=== PATIENT | female | born 1940 | race Caucasian/White ===

== ENCOUNTER → 2016-10-05 | Outpatient (CLI) | payer MEDICARE, BC ==
--- NOTE | 2016-10-05 14:36 | PCVCIMAG ---
APPROVED REPORT Study performed: 10/05/2016 13:38:24 EXAM: Comprehensive 2D, Doppler, and color-flow Echocardiogram Patient Location: Echo lab Status: routine Risk Factors: Cardiac Risk Factors: HTN, Hyperlipidemia, DM Indications Diabetes CAD Hypertension/HDD HLP 2D Dimensions LVEF(%): 71.37 (>50%) IVSd: 8.25 (7-11mm)LVOT Diam: 19.87 (18-24mm) LVDd: 46.32 mm PWd: 9.19 (7-11mm)Ascending Ao: 29.68 (22-36mm) LVDs: 27.52 (25-40mm) Left Atrium: 33.26 (27-40mm) Aortic Root: 24.11 mm LV Single Plane 4CH: 66.53 % LV Single Plane 2CH: 71.56 %Garcia's LVEF: 69.04 % Biplane EF: 68.9 % Volumes Left Atrial Volume (Systole) Single Plane 4CH: 59.07 mLSingle Plane 2CH: 76.53 mL LA ESV Index: 37.00 mL/m2 Aortic Valve AoV Peak Elías.: 2.08 m/s AO Peak Gr.: 17.70 mmHgLVOT Max P.33 mmHg AO Mean Gr.: 9.39 mmHgLVOT Mean P.34 mmHg AO V2 Mean: 1.46 m/sLVOT Max V: 1.03 m/s AO V2 VTI: 38.99 cmLVOT Mean V: 0.72 m/s BRENTON (VTI): 1.86 [id number] VTI: 23.38 cm BRENTON Vmax: 1.54 cm2 SV (LVOT): 72.47 mL Mitral Valve E/A Ratio: 0.7 MV Decel. Time: 285.48 ms MV E Max Elías.: 0.74 m/s MV A Elías.: 1.06 m/s IVRT: 117.65 ms TDI E/Lateral E': 10.57E/Medial E': 10.57 Medial E' Elías.: 0.07 m/s Lateral E' Elías.: 0.07 m/s Pulmonary Valve PV Peak Elías.: 1.32 m/sPV Peak Gr.: 6.95 mmHg Tricuspid Valve TR Peak Elías.: 1.45 m/s TR Peak Gr.: 8.38 mmHg TV Vmax: 0.44 m/s Left Ventricle The left ventricle is normal size. There is normal LV segmental wall motion. There is normal left ventricular wall thickness. Left ventricular systolic function is normal. The left ventricular ejection fraction is within the normal range. LVEF is 65-70%. Grade I - abnormal relaxation pattern. Right Ventricle The right ventricle is normal size. The right ventricular systolic function is normal. Atria Left atrium is mildly dilated. The right atrium size is normal. Aortic Valve Aortic valve leaflets are sclerotic. No aortic regurgitation is present. No hemodynamically significant valvular aortic stenosis. Mitral Valve The mitral valve is normal in structure. There is no mitral valve regurgitation noted. No evidence of mitral valve stenosis. Tricuspid Valve The tricuspid valve is normal in structure. There is no tricuspid valve regurgitation noted. Pulmonic Valve The pulmonary valve is normal in structure. There is no pulmonic valvular regurgitation. Great Vessels The aortic root is normal in size. The ascending aorta is normal in size. IVC is normal in size and collapses with >50% inspiration The pulmonary artery is normal. Pericardium There is no pericardial effusion. There is no pleural effusion. <Conclusion> The left ventricle is normal size. Left ventricular systolic function is normal. The right ventricle is normal size. Left atrium is mildly dilated. The right atrium size is normal. Aortic valve leaflets are sclerotic. The mitral valve is normal in structure. There is no pericardial effusion.
== END | disposition home or self-care (01) ==
LOC: PCVCIMAG 12:57
PROVIDERS: ATTEND Internal Medicine Cardiovascular Disease
DX: I25.10 Atherosclerotic heart disease of native coronary artery without angina pectoris (principal); I10 Essential (primary) hypertension; E78.00 Pure hypercholesterolemia, unspecified; K21.9 Gastro-esophageal reflux disease without esophagitis; K29.70 Gastritis, unspecified, without bleeding; E11.9 Type 2 diabetes mellitus without complications; Z95.5 Presence of coronary angioplasty implant and graft; Z88.8 Allergy status to other drugs, medicaments and biological substances; Z88.6 Allergy status to analgesic agent; Z91.018 Allergy to other foods; Z79.4 Long term (current) use of insulin; Z79.899 Other long term (current) drug therapy; Z86.73 Personal history of transient ischemic attack (TIA), and cerebral infarction without residual deficits; Z90.49 Acquired absence of other specified parts of digestive tract; Z87.891 Personal history of nicotine dependence
CPT/HCPCS: 93005; 93306; G0463

== ENCOUNTER → 2017-03-19 | Outpatient (CLI) | payer MEDICARE, BC | END | disposition home or self-care (01) | LOC: PCVCCLINIC 10:49 | PROVIDERS: ATTEND Internal Medicine Cardiovascular Disease | DX: I25.10 Atherosclerotic heart disease of native coronary artery without angina pectoris (principal); I10 Essential (primary) hypertension; E78.00 Pure hypercholesterolemia, unspecified; K21.9 Gastro-esophageal reflux disease without esophagitis; Z79.899 Other long term (current) drug therapy; Z87.891 Personal history of nicotine dependence | CPT/HCPCS: 93005; G0463 ==

== ENCOUNTER → 2017-09-17 | Outpatient (CLI) | payer MEDICARE, BC ==
[~2017-09-17] MED LIST: AMINOPHYLLINE 250 MG/10 ML VIAL.; REGADENOSON 0.4 MG/5 ML DISP.SYRIN. IV
== END | disposition home or self-care (01) ==
LOC: PCVCIMAG 14:28
DX: I25.10 Atherosclerotic heart disease of native coronary artery without angina pectoris (principal); E78.5 Hyperlipidemia, unspecified; I10 Essential (primary) hypertension; E11.9 Type 2 diabetes mellitus without complications; E78.00 Pure hypercholesterolemia, unspecified; K21.9 Gastro-esophageal reflux disease without esophagitis; Z87.891 Personal history of nicotine dependence; Z88.8 Allergy status to other drugs, medicaments and biological substances; Z79.899 Other long term (current) drug therapy; Z79.4 Long term (current) use of insulin
CPT/HCPCS: 78452; 93005; 93017; A9500; G0463; J0280; J2785

== ENCOUNTER → 2018-03-18 | Outpatient (CLI) | payer MEDICARE, BC | END | disposition home or self-care (01) | LOC: PCVCCLINIC 15:10 | PROVIDERS: ATTEND Internal Medicine Cardiovascular Disease | DX: I25.10 Atherosclerotic heart disease of native coronary artery without angina pectoris (principal); I10 Essential (primary) hypertension; E78.00 Pure hypercholesterolemia, unspecified; E11.9 Type 2 diabetes mellitus without complications; E78.5 Hyperlipidemia, unspecified; Z79.4 Long term (current) use of insulin; Z87.891 Personal history of nicotine dependence | CPT/HCPCS: 93005; G0463 ==

== ENCOUNTER → 2018-09-09 | Outpatient (CLI) | payer MEDICARE, BC ==
--- NOTE | 2018-09-09 13:38 | PCVCIMAG ---
APPROVED REPORT Study performed: 09/09/2018 11:51:47 EXAM: Comprehensive 2D, Doppler, and color-flow Echocardiogram Patient Location: Echo lab Status: routine BSA: 1.78 HR: 70 bpmBP: 130/68 mmHg Rhythm: NSR Other Information Study Quality: Adequate Risk Factors: Cardiac Risk Factors: HTN, Hyperlipidemia Indications CAD aortic stenosis 2D Dimensions IVSd: 11.81 (7-11mm)LVOT Diam: 21.90 (18-24mm) LVDd: 39.38 mm PWd: 11.33 (7-11mm)Ascending Ao: 28.05 (22-36mm) LVDs: 26.68 (25-40mm) Left Atrium: 39.63 (27-40mm) Aortic Root: 26.98 mm LV Single Plane 4CH: 63.79 % LV Single Plane 2CH: 55.82 % Biplane EF: 61.4 % Volumes Left Atrial Volume (Systole) Single Plane 4CH: 61.48 mLSingle Plane 2CH: 69.30 mL LA ESV Index: 39.00 mL/m2 Aortic Valve AoV Peak Elías.: 2.94 m/s AO Peak Gr.: 34.47 mmHgLVOT Max P.86 mmHg AO Mean Gr.: 14.86 mmHgLVOT Mean P.31 mmHg AO V2 Mean: 1.80 m/sLVOT Max V: 1.00 m/s AO V2 VTI: 68.81 cmLVOT Mean V: 0.73 m/s BRENTON (VTI): 1.28 [id number] V1 VTI: 23.46 cm BRENTON Vmax: 1.29 cm2 SV (LVOT): 88.34 mL Mitral Valve E/A Ratio: 0.7 MV Decel. Time: 254.63 ms MV E Max Elías.: 0.75 m/s MV A Elías.: 1.07 m/s IVRT: 114.19 ms Pulmonary Valve PV Peak Elías.: 1.09 m/sPV Peak Gr.: 4.75 mmHg Pulmonary Vein P Vein S: 0.29 m/sP Vein A: 0.32 m/s P Vein D: 0.51 m/sP Vein A Dur.: 121.1 msec P Vein S/D Ratio: 0.57 Tricuspid Valve TR Peak Elías.: 2.05 m/s TR Peak Gr.: 16.85 mmHg TV Vmax: 0.44 m/s Left Ventricle The left ventricle is normal size. There is normal LV segmental wall motion. Borderline concentric left ventricular hypertrophy. Left ventricular systolic function is normal. The left ventricular ejection fraction is within the normal range. LVEF is 60-65%. Grade I - abnormal relaxation pattern. Right Ventricle The right ventricle is normal size. The right ventricular systolic function is normal. Atria Left atrium is mildly dilated. The right atrium size is normal. Aortic Valve Mild-Moderate aortic valve sclerosis. No aortic regurgitation is present. There is mild valvular aortic stenosis. Maximum pressure gradient of 34 mmHg and mean pressure gradient of 15 mmHg. Mitral Valve The mitral valve is normal in structure. Mild mitral regurgitation. No evidence of mitral valve stenosis. Tricuspid Valve The tricuspid valve is normal in structure. Trace tricuspid regurgitation with PAP of 24 mmHg. Pulmonic Valve The pulmonary valve is normal in structure. There is no pulmonic valvular regurgitation. Great Vessels The aortic root is normal in size. IVC is normal in size and collapses >50% with inspiration. Pericardium There is no pericardial effusion. There is no pleural effusion. <Conclusion> The left ventricle is normal size. Borderline concentric left ventricular hypertrophy. Left ventricular systolic function is normal. Grade I - abnormal relaxation pattern. The right ventricle is normal size. Left atrium is mildly dilated. There is mild valvular aortic stenosis. Mild mitral regurgitation. Trace tricuspid regurgitation with PAP of 24 mmHg.
== END | disposition home or self-care (01) ==
LOC: PCVCIMAG 12:46
PROVIDERS: ATTEND Internal Medicine Cardiovascular Disease
DX: I08.0 Rheumatic disorders of both mitral and aortic valves (principal); I25.10 Atherosclerotic heart disease of native coronary artery without angina pectoris; K21.9 Gastro-esophageal reflux disease without esophagitis; E10.9 Type 1 diabetes mellitus without complications; I10 Essential (primary) hypertension; Z87.891 Personal history of nicotine dependence
CPT/HCPCS: 93005; 93306; G0463

== ENCOUNTER → 2019-03-17 | Outpatient (CLI) | payer MEDICARE, BC | END | disposition home or self-care (01) | LOC: PCVCCLINIC 13:30 | PROVIDERS: ATTEND Internal Medicine Cardiovascular Disease | DX: I25.10 Atherosclerotic heart disease of native coronary artery without angina pectoris (principal); I10 Essential (primary) hypertension; E78.00 Pure hypercholesterolemia, unspecified; R94.31 Abnormal electrocardiogram [ECG] [EKG]; I45.10 Unspecified right bundle-branch block; E11.9 Type 2 diabetes mellitus without complications; E78.5 Hyperlipidemia, unspecified; Z86.73 Personal history of transient ischemic attack (TIA), and cerebral infarction without residual deficits; Z90.49 Acquired absence of other specified parts of digestive tract; Z90.09 Acquired absence of other part of head and neck; Z79.899 Other long term (current) drug therapy; Z79.4 Long term (current) use of insulin; Z87.891 Personal history of nicotine dependence | CPT/HCPCS: 93005; G0463 ==